=== PATIENT | female | born 1975 | race American Indian/Alaskan Native ===

== ENCOUNTER 2016-10-01 20:57 | Emergency (ER) | payer BC ==
[2016-10-01 22:03] LABS: Eosinophils % (Auto) 1.4 % (0.0-4.3); Hematocrit 39.4 % (30.3-42.9); Hemoglobin 12.9 gm/dl (10.1-14.3); Mean Corpuscular HGB Conc 33 % (30-34); Mean Corpuscular Hemoglobin 27 pg (28-32); Mean Corpuscular Volume 83 fl (79-97); Platelet Count 310 K/mm3 (140-440); Red Blood Count 4.76 M/mm3 (3.65-5.03); Red Cell Distribution Width 13.8 % (13.2-15.2); White Blood Count 7.3 K/mm3 (4.5-11.0)
[2016-10-01 22:25] LABS: BUN/Creatinine Ratio 16.66; Blood Urea Nitrogen 15 mg/dL (7-17); Calcium 9.1 mg/dL (8.4-10.2); Carbon Dioxide 24 mmol/L (22-30); Glucose 88 mg/dL (65-100)
[2016-10-01 22:26] LABS: Anion Gap 18 mmol/L; Chloride 100.5 mmol/L (98-107); Potassium 3.5 mmol/L (3.6-5.0); Sodium 139 mmol/L (137-145)
[2016-10-02] MEDS ORDERED: ASPIRIN PO ONE (04:32)
--- NOTE | 2016-10-02 06:35 | Emergency Department Report ---
ED Chest Pain HPI - General Chief Complaint: Chest Pain Stated Complaint: CP Time Seen by Provider: 10/02/16 06:29 Source: patient Mode of arrival: Ambulatory Limitations: No Limitations - History of Present Illness MD Complaint: chest pain -: days(s) (1) Onset: during rest Pain Location: left chest, right chest Pain Radiation: none Severity: mild Severity scale (0 -10): 3 Quality: tightness Consistency: constant Improves With: nothing Worsens With: nothing Context: recent illness re: nausea Other Symptoms: cough Treatments Prior to Arrival: none - Related Data Allergies Allergy/AdvReac Type Severity Reaction Status Date / Time No Known Allergies Allergy Unverified 10/01/16 21:36 Heart Score - HEART Score History: Slightly suspicious EKG: Non-specific Age: < 45 Risk factors: 1-2 risk factors Troponin: < normal limit HEART Score: 2 - Critical Actions Critical Actions: 0-3 pts:0.9-1.7%risk of adverse cardiac event.Candidate for discharge ED Review of Systems ROS: Stated complaint: CP Other details as noted in HPI Comment: All other systems reviewed and negative Respiratory: shortness of breath Cardiovascular: chest pain ED Past Medical Hx - Past Medical History Previous Medical History?: Yes Additional medical history: thyroid disease - Surgical History Past Surgical History?: Yes Additional Surgical History: Tubal ligation - Social History Smoking Status: Never Smoker ED Physical Exam - General Limitations: No Limitations General appearance: alert, in no apparent distress - Head Head exam: Present: atraumatic - Eye Eye exam: Present: normal appearance - ENT ENT exam: Present: normal exam - Neck Neck exam: Present: normal inspection - Respiratory Respiratory exam: Present: normal lung sounds bilaterally - Cardiovascular Cardiovascular Exam: Present: regular rate - GI/Abdominal GI/Abdominal exam: Present: soft - Extremities Exam Extremities exam: Present: normal inspection - Back Exam Back exam: Present: normal inspection - Neurological Exam Neurological exam: Present: alert, altered, oriented X3 - Skin Skin exam: Present: warm, dry ED Course Vital Signs 10/01/16 10/02/16 10/02/16 21:31 06:07 07:54 Temperature 97.7 F 97.7 F 98.1 F Pulse Rate 64 61 66 Respiratory 16 16 14 Rate Blood Pressure 138/78 Blood Pressure 124/79 117/72 [Left] O2 Sat by Pulse 100 100 100 Oximetry 10/02/16 09:57 Temperature 98.4 F Pulse Rate 70 Respiratory 14 Rate Blood Pressure Blood Pressure 107/73 [Left] O2 Sat by Pulse 100 Oximetry ED Medical Decision Making - Lab Data Result diagrams: 10/01/16 21:48 10/01/16 21:48 Critical care attestation.: If time is entered above; I have spent that time in minutes in the direct care of this critically ill patient, excluding procedure time. ED Disposition Clinical Impression: Chest pain Disposition: DC-01 TO HOME OR SELFCARE Is pt being admited?: No Does the pt Need Aspirin: No Condition: Stable Instructions: Chest Pain (ED) Referrals: PRIMARY CARE, [Primary Care Provider] - 3-5 Days
--- NOTE | 2016-10-02 07:42 | XRay Report ---
CHEST ONE VIEW INDICATION: Chest pain. COMPARISON: 04/09/2008. FINDINGS: Portable, single, frontal chest radiograph demonstrates normal cardiomediastinal silhouette. Clear lungs. Unremarkable bones. Extrinsic EKG leads. CONCLUSION: No acute disease in the chest. Thank you for the opportunity to participate in this patient's care.
[2016-10-02 09:57] VITALS: BP 107/73
== END 2016-10-02 09:58 | disposition home or self-care (01) ==
LOC: ED 20:57
DX: R07.9 Chest pain, unspecified (principal); E07.9 Disorder of thyroid, unspecified
CPT/HCPCS: 36415; 71010; 80048; 84484; 84703; 85025; 85379; 93005; 93010